=== PATIENT | male | born 1945 ===

== ENCOUNTER 2016-12-17 07:02 | Day surgery (SDC) | payer MEDICARE, BC ==
[~2016-12-17] VITALS: Ht 182.9 cm; Wt 84.8 kg
[2016-12-17] VITALS (9 sets, daily range): BP systolic 128–157; BP diastolic 74–101
--- NOTE | 2016-12-17 06:57 | Pre-Procedure Note/Attestation ---
Pre-Procedure Note/Attestation Complete Prior to Procedure Planned Procedure: right Procedure Narrative: Right knee arthroscopy with partial menisectomy Indications for Procedure Pre-Operative Diagnosis: Right knee meniscal tear Attestation I attest that I discussed the nature of the procedure; its benefits; risks and complications; and alternatives (and the risks and benefits of such alternatives ), prior to the procedure, with the patient (or the patient's legal inside technical sales representative). I attest that, if there was a reasonable possibility of needing a blood transfusion, the patient (or the patient's legal inside technical sales representative) was given the [facility] standardized written summary, pursuant to the Tommy Seth Ward Blood Safety Act ([place] Health and Safety Code # 1645, as amended). I attest that I re-evaluated the patient just prior to the surgery and that there has been no change in the patient's H&P, except as documented below: KOTA ARCE Dec 17, 2016 06:57
[~2016-12-17 07:02] MED LIST: D5 1/2NS 1,000 ML IV SCH; HYDROmorphone 1mg/ml Carpuject SUBQ PRN; LR 1000ml 1,000 ML IV SCH; NKM; Norco 5mg/325mg tab ORAL PRN; Tylenol #3 tab (300mg/30mg) ORAL PRN
[2016-12-17] MEDS ORDERED: Bupivacaine w/Epi 0.25% 30ml Vial INJ ONE (10:20)
[2016-12-17] MEDS ORDERED: EPINEPHrine 1mg/1ml Amp ONE (10:20)
[2016-12-17] MEDS ORDERED: Propofol 10mg/ml 20ml IV ONE (10:20)
[2016-12-17] MEDS ORDERED: LR 1000ml ONE (10:30)
[2016-12-17] MEDS ORDERED: Midazolam 2mg/2ml Inj ONE (10:30)
[2016-12-17] MEDS ORDERED: fentaNYL 100 mcg/2 mL IV ONE (10:30)
[2016-12-17] MEDS ORDERED: Ketorolac 30mg Inj ONE (10:30)
[2016-12-17] MEDS ORDERED: LR 1000ml 1,000 ML IVLG SCH (11:06)
--- NOTE | 2016-12-17 11:06 | Anethesia Preoperative Eval ---
Anesthesia Pre-op PMH/ROS General Date of Evaluation: Dec 17, 2016 Time of Evaluation: 10:31 Anesthesiologist: Venu ASA Score: ASA 2 Mallampati Score Class I : Soft palate, uvula, fauces, pillars visible Class II: Soft palate, uvula, fauces visible Class III: Soft palate, base of uvula visible Class IV: Only hard plate visible Mallampati Classification: Class II Surgeon: Jose Martin Diagnosis: R knee pain Surgical Procedure: R knee scope Anesthesia History: none Family History: no anesthesia problems Allergies: Uncoded Allergies: hay fever (Allergy, Mild, 12/16/16) runny nose Medications: see eMAR Past Medical History Cardiovascular: Denies: CAD, HTN, NE, arrhythmia, other, valve dz Pulmonary: Denies: COPD, YU, asthma, other Gastrointestinal/Genitourinary: 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 Exam Physician Exam Last Vital Signs Date Time Temp Pulse Resp B/P Pulse Ox O2 Delivery O2 Flow Rate FiO2 12/17/16 07:37 97.3 57 18 128/82 93 Room Air Constitutional: NAD Neurologic: CN 2-12 intact Cardiovascular: RRR, no M/R/G Respiratory: CTA Gastrointestinal: S/NT/ND Airway Exam Mallampati Score: Class II MO: full Neck: stiff ROM: limited Teeth: missing Dentures: no lower, no upper Anesthesia Pre-op A/P Labs see chart Studies Pre-op Studies: EKG - NSR Risk Assessment & Plan Assessment: ASA 2 Plan: GA with LMA Status Change Before Surgery: No Pre-Antibiotics Drug: Ancef 2gr. Given Within 1 Hr of Incision: Yes Time Given: 10:58 LYLE ODONNELL M.D. Dec 17, 2016 11:06
[2016-12-17] MEDS ORDERED: DiphenhydrAMINE 50mg/ml Inj IVP PRN (11:15)
[2016-12-17] MEDS ORDERED: Hydromorphone 0.5mg/0.5ml inj IVP PRN (11:15)
--- NOTE | 2016-12-17 13:18 | Immediate Post-Op Evaluation ---
Immediate Post-Op Evalulation Immediate Post-Op Evalulation Procedure: R Knee arthroscopy meniscectomy Date of Evaluation: Dec 17, 2016 Time of Evaluation: 11:34 IV Fluids: 1200 Blood Products: none Estimated Blood Loss: <50 Urinary Output: none Blood Pressure Systolic: 128 Blood Pressure Diastolic: 56 Pulse Rate: 72 Respiratory Rate: 20 O2 Sat by Pulse Oximetry: 99 Temperature (Fahrenheit): 97.6 Pain Score (1-10): 2 Nausea: No Vomiting: No Complications none Patient Status: awake, patent, none Hydration Status: adequate LYLE ODONNELL M.D. Dec 17, 2016 13:18
--- NOTE | 2016-12-17 13:20 | 48 Hour Post Anesthesia Eval ---
Post Anesthesia Evaluation Procedure: R Knee arthroscopy meniscectomy Date of Evaluation: Dec 17, 2016 Time of Evaluation: 13:18 Blood Pressure Systolic: 132 0: 74 Pulse Rate: 62 Respiratory Rate: 20 Temperature (Fahrenheit): 97.8 O2 Sat by Pulse Oximetry: 98 Airway: patent Nausea: No Vomiting: No Pain Intensity: 1 Hydration Status: adequate Cardiopulmonary Status: stable Mental Status/LOC: patient returned to baseline Follow-up Care/Observations: n/a Post-Anesthesia Complications: none Follow-up care needed: ready to discharge LYLE ODONNELL M.D. Dec 17, 2016 13:20
--- NOTE | 2016-12-17 18:30 | Operative Note - Dictated ---
DATE OF OPERATION: 12/17/2016 SURGEON: Chad Philippe M.D. BANK CREDIT CARD COLLECTION CLERK: None. ANESTHESIA: General plus local. COMPLICATIONS: None. ANTIBIOTICS: Ancef. PREOPERATIVE DIAGNOSES: 1. RIGHT KNEE: 1.1. Medial compartment arthrosis. 1.2. Patellofemoral arthrosis. 1.3. Medial meniscus tear. POSTOPERATIVE DIAGNOSES: 1. RIGHT KNEE: 1.1. Medial compartment arthrosis. 1.2. Patellofemoral arthrosis. 1.3. Medial meniscus tear. PROCEDURE PERFORMED: 1. RIGHT KNEE ARTHROSCOPY WITH: 1.1. Patellofemoral chondroplasty. 1.2. Medial compartment chondroplasty. 1.3. Partial medial meniscectomy. HISTORY: The patient has had longstanding right knee pain refractory to nonoperative management. All risks, benefits, and alternatives to surgical intervention were discussed in great detail. Risks included, but were not limited to, bleeding, infection, neurovascular injury, need for additional surgical intervention, failure of pain relief, arthrofibrosis, complications of anesthesia, blood clots, stroke, heart attack, and potentially . He understood these risks, amongst others, and consent was signed. PROCEDURE IN DETAIL: The patient was brought into the operating room and placed supine on the operating table. The right knee was correctly verified for surgical site and prepped and draped in standard sterile fashion. Examination under anesthesia revealed a 1+ effusion with no laxity. ANTEROLATERAL AND ANTEROMEDIAL PORTALS WERE MARKED AND INJECTED WITH 20 ML OF 0.25% MARCAINE WITH EPINEPHRINE. A DIAGNOSTIC ARTHROSCOPY WAS THEN UNDERTAKEN. IT REVEALED THE FOLLOWIN. Normal suprapatellar pouch. 2. Grade 2 chondrosis patellofemoral articulation. 3. Normal medial gutter. 4. Normal lateral gutter. 5. Normal lateral compartment. 6. Normal lateral meniscus. 7. Normal anterior cruciate ligament. 8. Normal PCL. 9. Diffuse grade 3/4 chondrosis medial femoral condyle. 10. Large complex flap tear posterior and middle horn medial meniscus. In the medial compartment, chondroplasty was performed using a 4.5 mm shaver along the edges of the chondral changes such that loose bodies would form. The meniscus was resected using an up biter, left biter, and right biter along with a 4.5 mm shaver for contouring. It was resected to a stable border and tested with a probe. In the patellofemoral articulation, the 4.5 mm shaver was used to perform a chondroplasty. A probe was used to test the edges of the chondroplasty to make sure there were no loose bodies that would form. All fluid and debris were evacuated from the knee. A 10 mL of 0.25% Marcaine with epinephrine were injected. The wounds were copiously irrigated and reapproximated using 4-0 Monocryl in a subcuticular fashion. Steri-Strips were used over Mastisol. Dry sterile dressing was applied. A compressive stocking was fitted. There were no complications. I attest that I performed the entire operation. He was transferred to recovery in good condition. Chad Philippe M.D. ([facility] [place]) DR: MICAELA JOB#: [id number] CC:
== END 2016-12-17 13:10 | disposition home or self-care (01) ==
LOC: SUR 07:02
DX: M23.221 Derangement of posterior horn of medial meniscus due to old tear or injury, right knee (principal); M17.11 Unilateral primary osteoarthritis, right knee; M94.9 Disorder of cartilage, unspecified; N18.9 Chronic kidney disease, unspecified; B35.1 Tinea unguium; K21.9 Gastro-esophageal reflux disease without esophagitis; M19.90 Unspecified osteoarthritis, unspecified site; J45.909 Unspecified asthma, uncomplicated; N52.9 Male erectile dysfunction, unspecified; J30.1 Allergic rhinitis due to pollen; Z90.49 Acquired absence of other specified parts of digestive tract
CPT/HCPCS: 29881; 97161; G8978; G8979; G8980; J0171; J0690; J1885; J2250; J2704; J3010; J7120; 94003; 94150